=== PATIENT | female | born 1955 | race American Indian/Alaskan Native ===

== ENCOUNTER 2021-05-18 10:13 | Emergency (ER) | payer MEDICARE, OTHER ==
[2021-05-18] MEDS ORDERED: FLUORESCEIN 1 MG STRIP OP ONE (10:42)
[2021-05-18] MEDS ORDERED: TETRACAINE 0.5% OPHTH SOLN 4ML OU STA (10:42)
--- NOTE | 2021-05-18 10:42 | Emergency Department Report ---
ED Eye Problem HPI - General Chief complaint: Eye Problems Stated complaint: cannot see out of right eye Time Seen by Provider: 05/18/21 10:32 Source: patient Mode of arrival: Ambulatory Limitations: No Limitations - History of Present Illness Initial comments: 66-year-old female with a past medical history of hypertension, diabetes, hyperlipidemia, and dementia presents to the ER with complaints of inability to see out of her right eye. Patient is a poor historian and unfortunately there is no available family member to assist in history. Patient reports that a few weeks ago she was washing her face when she noticed that she could not see out of her right eye. Initially patient reported that she did not go to an eyelet operator when she noticed this, but then she stated that she thinks she went to an eyelet operator after noticing that she could not see out of her right eye and she thinks they told her it could be related to glaucoma but she was not given any medication. She does not recall when she went to the ccna or the name of the ccna. She states that this morning she noticed the eye to be red, and with increased tearing. She denies any injury to the eye. She denies any pain. She denies any crusting or matting. She denies any associated eye injury, grinding or welding. She denies any headache, dizziness, nausea, vomiting or any associated symptoms. She states that she used to wear glasses for reading but otherwise denies any prior eye issues. chief complaint: vision change, other (unable to see out of right eye ) -: week(s) - Related Data Home Medications Medication Instructions Recorded Confirmed Last Taken Amlodipine Besylate [Norvasc] 5 mg PO DAILY 08/06/15 08/06/15 08/06/15 06:00 Previous Rx's Medication Instructions Recorded Last Taken Type Tobramycin 0.3% [Tobrex] 2 drop OD Q4HR 7 Days #1 bottle 05/18/21 Unknown Rx Allergies Allergy/AdvReac Type Severity Reaction Status Date / Time lisinopril Allergy Unknown Verified 08/06/15 07:29 cefaclor [From Ceclor] AdvReac Itching Verified 08/06/15 07:29 ED Review of Systems ROS: Stated complaint: cannot see out of right eye Other details as noted in HPI Comment: All other systems reviewed and negative Constitutional: denies: chills, fever Eyes: vision change, other (Eye redness, increased tearing). denies: eye pain, eye discharge ENT: denies: ear pain, throat pain, dental pain, hearing loss, epistaxis, congestion Respiratory: denies: cough, orthopnea, shortness of breath, SOB with exertion, SOB at rest, wheezing Cardiovascular: denies: chest pain, palpitations, dyspnea on exertion, edema, syncope, paroxysmal nocturnal dyspnea Gastrointestinal: denies: abdominal pain, nausea, diarrhea, constipation, hematemesis, melena, hematochezia Genitourinary: denies: urgency, dysuria, frequency, hematuria, discharge, abnormal menses, dyspareunia Musculoskeletal: denies: back pain, joint swelling, arthralgia Skin: denies: rash, lesions, change in color, change in hair/nails, pruritus Neurological: denies: headache, weakness, numbness, paresthesias, confusion, abnormal gait, vertigo Psychiatric: denies: anxiety, depression, auditory hallucinations, visual hallucinations, homicidal thoughts, suicidal thoughts Hematological/Lymphatic: denies: easy bleeding, easy bruising, swollen glands ED Past Medical Hx - Past Medical History Hx Hypertension: Yes Hx Diabetes: Yes - Surgical History Hx Appendectomy: Yes Additional Surgical History: MYOMECTOMY X SEVERAL. X 2. HYSTERECTOMY - Social History Smoking Status: Current Every Day Smoker Substance Use Type: Alcohol - Medications Home Medications: Home Medications Medication Instructions Recorded Confirmed Last Taken Type Amlodipine Besylate [Norvasc] 5 mg PO DAILY 08/06/15 08/06/15 08/06/15 06:00 History Tobramycin 0.3% [Tobrex] 2 drop OD Q4HR 7 Days #1 bottle 05/18/21 Unknown Rx ED Physical Exam - General Limitations: No Limitations General appearance: alert, in no apparent distress - Head Head exam: Present: atraumatic, normocephalic - Eye Eye exam: Present: EOMI, conjunctival injection (Moderately injected right eye), other (Pupil to the right eyes fixed, slightly dilated, nonreactive to light, and is white; cornea is mildly cloudy; no apparent foreign body). Absent: scleral icterus, nystagmus, periorbital swelling, periorbital tenderness Pupils: Present: irregular (Right), unequal (Right) - Expanded Eye Exam Expanded Visual acuity (R) = 20/: 0 (unable to see) Visual acuity (L) = 20/: 30 IOP measured with: Tonopen (unavailable) - Neck Neck exam: Present: normal inspection, full ROM. Absent: meningismus - Respiratory Respiratory exam: Present: normal lung sounds bilaterally. Absent: respiratory distress, wheezes, rales, rhonchi - Cardiovascular Cardiovascular Exam: Present: regular rate, normal rhythm, normal heart sounds - Neurological Exam Neurological exam: Present: alert, oriented X3, CN II-XII intact, normal gait - Psychiatric Psychiatric exam: Present: normal affect, normal mood - Skin Skin exam: Present: intact ED Course Vital Signs 05/18/21 05/18/21 10:19 12:58 Temperature 98.0 F Pulse Rate 96 H 82 Respiratory 16 18 Rate Blood Pressure 178/96 168/84 [Right] O2 Sat by Pulse 98 99 Oximetry ED Medical Decision Making - Medical Decision Making 1232: I was able to call and speak with patient's son ([phone]) and spoke with Mr Zuniga, he clarified that patient has a history of glaucoma and has had it for years and her loss of sites to the right is not new is actually old. He states that the main reason he brought in is because she was complained that the eye was red, sore and draining and so he brought her to the ER because the [facility] was closed. He states that patient does have eyedrops for her glaucoma. Exam shows that patient does have a corneal abrasion to the right eye. Patient will be started on antibiotic eye ointment. Discussed with son findings on physical exam and recommend following up with eye clinic next week for recheck. Patient is not toxic, not ill-appearing and not in any acute distress. Patient was stable at time of discharge. Critical care attestation.: If time is entered above; I have spent that time in minutes in the direct care of this critically ill patient, excluding procedure time. ED Disposition Clinical Impression: Corneal abrasion, Conjunctivitis, History of glaucoma Disposition: 01 HOME / SELF CARE / HOMELESS Is pt being admited?: No Does the pt Need Aspirin: No Condition: Stable Instructions: Corneal Abrasion, How to Use Eye Drops and Eye Ointments Additional Instructions: Recommend that you use the antibiotic eyedrops as prescribed. I recommend follow-up with the [facility] next week for recheck to make sure there is resolution of the abrasion. Return to the ER if anything changes or worsens in any way. Prescriptions: Tobramycin 0.3% [Tobrex] 2 drop OD Q4HR 7 Days #1 bottle Referrals: [facility] [Other] - 3-5 Days Time of Disposition: 12:38
[2021-05-18 12:59] VITALS: BP 168/84
== END 2021-05-18 12:59 | disposition home or self-care (01) ==
LOC: ED 10:13
DX: S05.01XA Injury of conjunctiva and corneal abrasion without foreign body, right eye, initial encounter (principal); H10.9 Unspecified conjunctivitis; H40.9 Unspecified glaucoma; E11.9 Type 2 diabetes mellitus without complications; I10 Essential (primary) hypertension; F17.200 Nicotine dependence, unspecified, uncomplicated; Z90.710 Acquired absence of both cervix and uterus; Z98.51 Tubal ligation status; Z98.890 Other specified postprocedural states; X58.XXXA Exposure to other specified factors, initial encounter; Y93.89 Activity, other specified; Y92.89 Other specified places as the place of occurrence of the external cause; Y99.8 Other external cause status
CPT/HCPCS: 99282

== ENCOUNTER 2021-05-19 13:19 | Emergency (ER) | payer MEDICARE ==
[2021-05-19 13:30] VITALS: BP 144/88
--- NOTE | 2021-05-19 13:56 | Emergency Department Report ---
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 Patient was seen here yesterday for the similar symptoms including vision loss but after discussion with the son, he reported that patient has glaucoma and has always had vision loss to the right eye secondary to glaucoma. On exam she was found to have a corneal abrasion, she was prescribed tobramycin eyedrops, and she and her son were instructed to follow-up with the [place] [facility] this week for recheck. Patient returns to the ER today stating that she has been using the drops but she feels like is just not getting better. She reports increased drainage from the eye, she states that it is painful, and still very red and has been matting shut. She also states that she noticed this white film on her cornea which seem to have gotten worse since I last saw her. She denies any new injury to her eyes since I last saw her. MD chief complaint: eye pain, eye redness, vision change - Related Data Home Medications Medication Instructions Recorded Confirmed Last Taken Amlodipine Besylate [Norvasc] 5 mg PO DAILY 08/06/15 08/06/15 08/06/15 06:00 Previous Rx's Medication Instructions Recorded Last Taken Type Tobramycin 0.3% [Tobrex] 2 drop OD Q4HR 7 Days #1 bottle 05/18/21 Unknown Rx Allergies Allergy/AdvReac Type Severity Reaction Status Date / Time lisinopril Allergy Severe Angioedema Verified 05/19/21 13:30 cefaclor [From Ceclor] AdvReac Severe Shortness Verified 05/19/21 13:31 of Breath ED Review of Systems ROS: Stated complaint: VISION LOSS Other details as noted in HPI Comment: All other systems reviewed and negative Constitutional: denies: chills, fever Eyes: eye pain, eye discharge, vision change, other (Eye redness) ENT: denies: ear pain, throat pain, dental pain, hearing loss, epistaxis, congestion Respiratory: denies: cough, shortness of breath, SOB with exertion, SOB at rest, wheezing Cardiovascular: denies: chest pain, palpitations Gastrointestinal: denies: abdominal pain, nausea, diarrhea, constipation, hematemesis, hematochezia Genitourinary: denies: urgency, dysuria, frequency, hematuria, discharge, abnormal menses, dyspareunia Musculoskeletal: denies: back pain, joint swelling, arthralgia Skin: denies: rash, lesions, change in color, change in hair/nails, pruritus ED Past Medical Hx - Past Medical History Hx Hypertension: Yes Hx Diabetes: Yes - Surgical History Hx Appendectomy: Yes Additional Surgical History: MYOMECTOMY X SEVERAL. X 2. HYSTERECTOMY - Social History Smoking Status: Current Every Day Smoker Substance Use Type: Alcohol - Medications Home Medications: Home Medications Medication Instructions Recorded Confirmed Last Taken Type Amlodipine Besylate [Norvasc] 5 mg PO DAILY 08/06/15 08/06/15 08/06/15 06:00 History Tobramycin 0.3% [Tobrex] 2 drop OD Q4HR 7 Days #1 bottle 05/18/21 Unknown Rx ED Physical Exam - General Limitations: No Limitations General appearance: alert, in no apparent distress - Head Head exam: Present: atraumatic, normocephalic, normal inspection - Eye Eye exam: Present: EOMI, conjunctival injection (Severely injected right eye wit h scant amount of yellow mucus around the eyelids), periorbital swelling (Mild right). Absent: scleral icterus, nystagmus Pupils: Present: irregular. Absent: other (Right pupil mildly dilated and fixed and kin out; there is a white fluid collection noted to the inferior aspect of the cornea which has built up since I last saw the patient yesterday, questionable hypopyon) - Respiratory Respiratory exam: Absent: respiratory distress - Cardiovascular Cardiovascular Exam: Present: regular rate, normal rhythm, normal heart sounds - Neurological Exam Neurological exam: Present: alert, oriented X3, CN II-XII intact, normal gait - Psychiatric Psychiatric exam: Present: normal affect, normal mood - Skin Skin exam: Present: intact ED Course Vital Signs 05/19/21 13:28 Temperature 98.9 F Pulse Rate 96 H Respiratory 14 Rate Blood Pressure 144/88 [Right] O2 Sat by Pulse 99 Oximetry ED Medical Decision Making - Medical Decision Making Physical exam of patient today is concerning for development of a hypopyon to her right eye since yesterday. The conjunctiva is severely injected, and she does have scant amount of yellow mucus around the eyelid. Extraocular movements are intact. Pupil again is slightly irregular when compared to the left and also kin out. Discussed case with Dr. Spears, who also evaluated patient and agree for transfer for ophthalmology consult given patient is not developing a hypopyon to the eye. 1449: Spoke to the transfer center at [place], they state that they will call me back once to get a hold of the giver. 1303: Discussed case with Dr. Bruce, giver on-call at [place], he accepted patient recommend an ER to ER transfer and he will see patient once patient arrives to the ER at [place]. This case was discussed with Dr. Garcia, ED doctor at [place] for ER to ER transfer. 1713: I was informed by the charge nurse Mckenzie that patient refused transport to [place]. I was not aware of this until patient had left the ER. Per charge nurse patient did sign AMA and had left with her son who was informed of the situation. I did not get a chance to talk to son nor the patient about risk of refusing transfer. Critical care attestation.: If time is entered above; I have spent that time in minutes in the direct care of this critically ill patient, excluding procedure time. ED Disposition Clinical Impression: Corneal abrasion, Hypopyon of right eye Disposition: 04 INTERMEDIATE CARE FACILITY Is pt being admited?: No Does the pt Need Aspirin: No Condition: Stable Referrals: PRIMARY CARE, [Primary Care Provider] - 3-5 Days
== END 2021-05-19 16:58 ==
LOC: ED 13:19
DX: S05.01XA Injury of conjunctiva and corneal abrasion without foreign body, right eye, initial encounter (principal); H20.051 Hypopyon, right eye; I10 Essential (primary) hypertension; E11.8 Type 2 diabetes mellitus with unspecified complications; Z90.89 Acquired absence of other organs; F17.200 Nicotine dependence, unspecified, uncomplicated; F10.20 Alcohol dependence, uncomplicated; Z88.8 Allergy status to other drugs, medicaments and biological substances; X58.XXXA Exposure to other specified factors, initial encounter; Y93.89 Activity, other specified; Y92.89 Other specified places as the place of occurrence of the external cause; Y99.8 Other external cause status
CPT/HCPCS: 99282